=== PATIENT | male | born 1990 | race Caucasian/White ===

== ENCOUNTER 2021-11-17 22:25 | Emergency (ER) | payer OTHER ==
[~2021-11-17 22:25] MED LIST: BACTRIM DS TAB1 EACH PO; JANUVIA25 MG PO; KEFLEX250 MG PO; METFORMIN HCL500 MG PO
[2021-11-18 00:45] LABS: BASOPHIL 0.5 % (0-2); EOSINOPHIL 2.1 % (0-5); HCT 40.1 % (42.0-52.0); HGB 12.9 g/dl (13.2-18.0); LYMPHOCYTE 28.3 % (15-48); MCH 27.5 pg (25.0-31.0); MCHC 32.2 g/dL (32.0-36.0); MCV 85.5 fL (78.0-100.0); MONOCYTE 6.6 % (0-12); MPV 9.3 fL (6.0-9.5); NEUTROPHIL 62.1 % (41-80); NRBC 0; PLT 383 K/uL (150-400); RBC 4.69 M/uL (4.70-6.00); RDW 13.4 % (11.5-14.0); WBC 13.5 K/uL (4.0-10.5)
[2021-11-18] MEDS ORDERED: CLEOCIN300 MG PO (01:04)
== END 2021-11-18 01:13 | disposition home or self-care (01) ==
LOC: FER 22:25
PROVIDERS: Emergency Medicine
DX: E11.621 Type 2 diabetes mellitus with foot ulcer (principal); L97.529 Non-pressure chronic ulcer of other part of left foot with unspecified severity; E11.40 Type 2 diabetes mellitus with diabetic neuropathy, unspecified; E11.638 Type 2 diabetes mellitus with other oral complications; Z98.890 Other specified postprocedural states
CPT/HCPCS: 36415; 83605; 85025; 99283; Q0162